=== PATIENT | female | born 1945 | race Caucasian/White ===

== ENCOUNTER 2017-12-13 12:56 | Emergency (ER) | payer MEDICARE ==
[~2017-12-13] VITALS: Ht 157.5 cm; Wt 45.4 kg
--- NOTE | 2017-12-13 14:37 | NUR ---
Patient discharged to home in stable conditon. Written and verbal after care instructions given. Patient verbalizes understanding of instructions.
== END 2017-12-13 15:05 | disposition home or self-care (01) ==
LOC: ER 12:56
DX: J02.9 Acute pharyngitis, unspecified (principal)
CPT/HCPCS: A4663

== ENCOUNTER 2019-02-10 09:26 | Emergency (ER) | payer MEDICARE ==
[~2019-02-10] VITALS: Ht 157.5 cm; Wt 47.6 kg
--- NOTE | 2019-02-10 09:48 | NUR ---
at bedside to examine patient.
--- NOTE | 2019-02-10 09:54 | NUR ---
Patient discharged to home in stable conditon. Written and verbal after care instructions given. Patient verbalizes understanding of instructions.PT WALKS IN STEADY GAIT.
== END 2019-02-10 10:00 | disposition home or self-care (01) ==
LOC: ER 09:26
DX: R19.7 Diarrhea, unspecified (principal)
CPT/HCPCS: A4663

== ENCOUNTER 2022-02-18 10:36 | Emergency (ER) | payer MEDICARE ==
[~2022-02-18] VITALS: Ht 157.5 cm; Wt 44.5 kg
[2022-02-18] MEDS ORDERED: LIDOCAINE 1%-EPI 1:100,000 20 ML VIAL IJ ONE (11:30)
[2022-02-18] MEDS ORDERED: diphenhydrAMINE 25 MG CAP PO ONE ×2 (11:30→11:53)
[2022-02-18] MEDS ORDERED: CEFTRIAXONE 1 G VIAL IM ONE (11:30)
[2022-02-18] MEDS ORDERED: CEPH500C2 PO (11:32)
[2022-02-18] MEDS ORDERED: CEFTRIAXONE 1 G VIAL ONE (11:37)
[2022-02-18] MEDS ORDERED: LIDOCAINE HCL 1% 20 ML VIAL ONE (11:38)
--- NOTE | 2022-02-18 12:01 | NUR ---
Rocephine 1 gram with Lidocaine 1% injected to left buttock. Benadryl 25 mg PO given.
--- NOTE | 2022-02-18 12:40 | NUR ---
Patient is stable. Denies any reaction. Patient's discharge instructions given. No further inquiries. Denies any nausea, vomiting, and diarrhea. Denies any pruritus. Discussed home care.
--- NOTE | 2022-02-18 12:56 | NUR ---
pt given discharge paperwork, requested a list of medicatons administered to her here in ED. I provided the patient with that information. She also requested that i add a note to her chart regarding medicare fraud, i explained to the patient that i could not enter that information and asked her to get in touch with Medicare regarding her questions and concerns. She requested copies of her medical record, i refered her to our medical records department, she verbalized understanding. i provided her with our hospital's main number.
--- NOTE | 2022-02-18 13:00 | NUR ---
Patient discharged to home in stable condition. Written and verbal after care instructions given. Patient verbalizes understanding of instructions. Stressed follow up or return to ER for worsening s/s.
== END 2022-02-18 13:09 | disposition home or self-care (01) ==
LOC: ER 10:47
DX: S00.462A Insect bite (nonvenomous) of left ear, initial encounter (principal); H60.12 Cellulitis of left external ear; W57.XXXA Bitten or stung by nonvenomous insect and other nonvenomous arthropods, initial encounter; Y92.89 Other specified places as the place of occurrence of the external cause; Z88.1 Allergy status to other antibiotic agents; Z88.0 Allergy status to penicillin
CPT/HCPCS: 99283; 96372; Q0163; J0696; J3490; A4663

== ENCOUNTER 2023-05-03 17:04 | Inpatient (IN) | payer MEDICARE ==
[~2023-05-03] VITALS: Ht 157.5 cm; Wt 41.7 kg
[~2023-05-03 17:04] MED LIST: CEPH500C2 PO
[2023-05-03] MEDS ORDERED: PANT40TA49 PO (18:02)
[2023-05-03] MEDS ORDERED: ACET-3117 PO (18:02)
[2023-05-03] MEDS ORDERED: OLAN2.5T3 PO (18:02)
[2023-05-03 18:13] LABS: BASOPHILS % (AUTO) 0.7 % (0.0-2.0); EOSINOPHILS # (AUTO) 0.1 K/uL (0.0-0.7); EOSINOPHILS % (AUTO) 1.6 % (0.0-7.0); HEMATOCRIT 31.4 % (31.2-41.9); HEMOGLOBIN 10.5 g/dL (10.9-14.3); LYMPHOCYTES # (AUTO) 1.3 K/uL (0.8-4.8); LYMPHOCYTES % (AUTO) 20.1 % (20.5-51.5); MEAN CORPUSCULAR HEMOGLOBIN 29.3 uug (24.7-32.8); MEAN CORPUSCULAR HGB CONC 34 g/dL (32.3-35.6); MEAN CORPUSCULAR VOLUME 87.5 fL (75.5-95.3); MONOCYTES # (AUTO) 0.4 K/uL (0.1-1.30); MONOCYTES % (AUTO) 5.9 % (0.0-11.0); NEUTROPHILS # (AUTO) 4.7 K/uL (1.8-8.9); NEUTROPHILS % (AUTO) 71.7 % (38.5-71.5); PLATELET COUNT (AUTO) 467 K/uL (179-408); RED BLOOD CELL COUNT(AUTO) 3.59 MIL/uL (3.63-4.92); RED CELL DISTRIBUTION WIDTH 14.2 % (12.3-17.7); WHITE BLOOD COUNT (AUTO) 6.5 K/uL (3.8-11.8)
[2023-05-03 18:49] LABS: ALANINE AMINOTRANSFERASE 26 U/L (14-59); ALBUMIN 3.2 g/dL (3.4-5.0); ALKALINE PHOSPHATASE 69 U/L (50-136); ASPARTATE AMINOTRANSFERASE 22 U/L (15-37); BILIRUBIN,DIRECT 0.2 mg/dL (0.0-0.2); BILIRUBIN,TOTAL 0.3 mg/dL (0.2-1.0); CALCIUM 9.3 mg/dL (8.5-10.1); CARBON DIOXIDE 24 mmol/L (21-32); CHLORIDE 101 mmol/L (98-107); CREATININE 0.9 mg/dL (0.6-1.3); GLUCOSE 122 mg/dL (74-106); POTASSIUM 4.1 mmol/L (3.5-5.1); SODIUM SERUM 137 mmol/L (136-145); TOTAL PROTEIN, SERUM 7.3 g/dL (6.4-8.2); UREA NITROGEN, BLOOD 11 mg/dL (7-18)
[2023-05-03 18:51] LABS: ETHANOL < 3 MG/DL (0-10)
[2023-05-03 18:56] LABS: THYROID STIMULATING HORMONE 2.541 mIU/mL (0.358-3.740)
[2023-05-03 19:27] LABS: ACETAMINOPHEN < 2.0 ug/mL (10-30)
[2023-05-03 21:45] VITALS: BP 121/73; TEMP 98; O2SAT 100
[2023-05-03] MEDS ORDERED: ACETAMINOPHEN 325 MG TABLET PO PRN (22:00)
[2023-05-03] MEDS ORDERED: TEMAZEPAM 7.5 MG CAPSULE PO PRN (22:00)
[2023-05-03] MEDS ORDERED: MAG HYDROX/AL HYDROX/SIMETH 30 ML LIQUID UDC PO PRN (22:00)
[2023-05-03] MEDS ORDERED: CLONAZEPAM 0.5 MG TABLET PO PRN (22:00)
[2023-05-03] MEDS ORDERED: BLOOD SUGAR DIAGNOSTIC 1 EACH STRIP VI ONE (22:00)
[2023-05-03] MEDS ORDERED: MAGNESIUM HYDROXIDE 30 ML LIQUID UDC PO PRN (22:00)
[2023-05-03] MEDS ORDERED: Medication Not On Formulary EA (Acetaminophen 650 MG) PO PRN (23:15)
[2023-05-04] MEDS: PANTOPRAZOLE SODIUM 40 MG TABLET.DR PO SCH (06:38)
[2023-05-04 08:07] VITALS: BP 125/62; TEMP 98.2; O2SAT 99
[2023-05-04] MEDS ORDERED: PANTOPRAZOLE SODIUM 40 MG TABLET.DR PO SCH (09:00)
[2023-05-04 09:14] LABS: *AMPHETAMINE, URINE NEGATIVE (NEGATIVE); *BARBITURATE, URINE NEGATIVE (NEGATIVE); *BENZODIAZEPINE, URINE NEGATIVE (NEGATIVE); *CANNABINOID, URINE NEGATIVE (NEGATIVE); *COCCAINE, URINE NEGATIVE (NEGATIVE); *OPIATE, URINE NEGATIVE (NEGATIVE); *PHENCYCLIDINE SCREEN,URINE NEGATIVE (NEGATIVE); FENTANYL, URINE NEGATIVE (NEGATIVE)
[2023-05-04 09:33] LABS: *CLARITY,URINE CLEAR (CLEAR); *COLOR,URINE LIGHT YELLOW (YELLOW); *PROTEIN,URINE 1+ (NEGATIVE); UGLUCOSE NEGATIVE (NEGATIVE)
[2023-05-04 09:34] LABS: *BILIRUBIN,URIN NEGATIVE (NEGATIVE); *BLOOD, URINE 3+ (NEGATIVE); *KETONES,URINE NEGATIVE (NEGATIVE); *UROBILINOGEN,URINE 0.2 E.U./dl (NORMAL); LEUKOCYTE ESTERASE ,URINE TRACE (NEGATIVE); NITRITE, URINE NEGATIVE (NEGATIVE)
[2023-05-04 11:00] LABS: BACTERIA,URINE MANY /HPF (NONE SEEN); CALCIUM OXALATE CRYSTALS,UR MODERATE /HPF (NONE SEEN); SQUAMOUS EPITHELIAL CELL,UR FEW /HPF (NONE SEEN)
[2023-05-04 15:20] VITALS: BP 120/65; TEMP 97.8; O2SAT 98
[2023-05-04] MEDS ORDERED: risperiDONE 0.5 MG TABLET PO SCH (17:00)
[2023-05-04 20:00] VITALS: BP 111/54; TEMP 97.4; O2SAT 100
[2023-05-04] MEDS: risperiDONE 0.5 MG TABLET PO SCH (20:50)
[2023-05-05] MEDS: PANTOPRAZOLE SODIUM 40 MG TABLET.DR PO SCH (06:42)
[2023-05-05 08:02] VITALS: BP 106/68; TEMP 98.5; O2SAT 98
[2023-05-05] MEDS: risperiDONE 0.5 MG TABLET PO SCH ×2 (08:42→21:00)
[2023-05-05 16:03] VITALS: BP 94/56; TEMP 98.1; O2SAT 98
[2023-05-05 20:15] VITALS: BP 99/61; TEMP 98.2; O2SAT 98
[2023-05-06] MEDS: PANTOPRAZOLE SODIUM 40 MG TABLET.DR PO SCH (06:16)
[2023-05-06 07:47] VITALS: BP 122/73; TEMP 98; O2SAT 100
[2023-05-06] MEDS: risperiDONE 0.5 MG TABLET PO SCH ×2 (08:28→21:00)
[2023-05-06 15:19] VITALS: BP 106/55; TEMP 98; O2SAT 98
[2023-05-06 19:52] VITALS: BP 124/66; TEMP 98.1; O2SAT 99
[2023-05-07] MEDS: PANTOPRAZOLE SODIUM 40 MG TABLET.DR PO SCH (07:03)
[2023-05-07 08:00] VITALS: BP 106/59; TEMP 97.6; O2SAT 97
[2023-05-07] MEDS: risperiDONE 0.5 MG TABLET PO SCH ×2 (08:36→20:26)
[2023-05-07 16:00] VITALS: BP 113/71; TEMP 98.6; O2SAT 98
[2023-05-07 19:44] VITALS: BP 117/54; TEMP 98.1; O2SAT 98
[2023-05-08] MEDS: PANTOPRAZOLE SODIUM 40 MG TABLET.DR PO SCH (06:21)
[2023-05-08 08:15] VITALS: BP 117/62; TEMP 97.8; O2SAT 100
[2023-05-08] MEDS: risperiDONE 0.5 MG TABLET PO SCH ×2 (08:30→20:11)
[2023-05-08 15:39] VITALS: BP 107/60; TEMP 98; O2SAT 99
[2023-05-08 19:57] VITALS: BP 121/61; TEMP 98; O2SAT 99
[2023-05-09] MEDS: PANTOPRAZOLE SODIUM 40 MG TABLET.DR PO SCH (06:19)
[2023-05-09 07:46] VITALS: TEMP 97.8
[2023-05-09] MEDS: risperiDONE 0.5 MG TABLET PO SCH ×2 (08:25→21:00)
[2023-05-09 16:00] VITALS: BP 115/61; TEMP 97.6
[2023-05-09 20:00] VITALS: BP 101/55; TEMP 97.3; O2SAT 100
[2023-05-10] MEDS: PANTOPRAZOLE SODIUM 40 MG TABLET.DR PO SCH (06:04)
[2023-05-10] MEDS: risperiDONE 0.5 MG TABLET PO SCH ×2 (08:56→21:00)
[2023-05-10 16:30] VITALS: BP 126/83; TEMP 97.2; O2SAT 99
[2023-05-10 20:16] VITALS: BP 99/50; TEMP 98.1; O2SAT 99
[2023-05-11] MEDS: PANTOPRAZOLE SODIUM 40 MG TABLET.DR PO SCH (06:13)
[2023-05-11] MEDS: risperiDONE 0.5 MG TABLET PO SCH ×2 (08:38→21:00)
[2023-05-11 16:00] VITALS: BP 115/64; TEMP 97.7; O2SAT 99
[2023-05-11 20:00] VITALS: BP 102/47; TEMP 97.7; O2SAT 99
[2023-05-12] MEDS: PANTOPRAZOLE SODIUM 40 MG TABLET.DR PO SCH (06:24)
[2023-05-12 07:30] VITALS: BP 120/65; TEMP 97.2; O2SAT 99
[2023-05-12] MEDS: risperiDONE 0.5 MG TABLET PO SCH ×2 (08:02→20:12)
[2023-05-12 15:30] VITALS: BP 128/59; TEMP 98; O2SAT 97
[2023-05-12 20:00] VITALS: BP 109/48; TEMP 98.1; O2SAT 95
[2023-05-13] MEDS: PANTOPRAZOLE SODIUM 40 MG TABLET.DR PO SCH (06:05)
[2023-05-13 08:04] VITALS: BP 125/72; TEMP 98; O2SAT 98
[2023-05-13] MEDS: risperiDONE 0.5 MG TABLET PO SCH ×2 (09:00→21:00)
[2023-05-13 16:12] VITALS: BP 106/62; TEMP 98.1; O2SAT 99
[2023-05-13 20:00] VITALS: BP 109/55; TEMP 97.8; O2SAT 98
[2023-05-14] MEDS: PANTOPRAZOLE SODIUM 40 MG TABLET.DR PO SCH (06:33)
[2023-05-14 07:40] VITALS: BP 123/63; TEMP 98.1; O2SAT 98
[2023-05-14] MEDS: risperiDONE 0.5 MG TABLET PO SCH ×2 (08:04→21:00)
[2023-05-14 16:00] VITALS: BP 103/54; TEMP 98; O2SAT 98
[2023-05-14 20:00] VITALS: BP 96/54; TEMP 97.9; O2SAT 97
[2023-05-15] MEDS: PANTOPRAZOLE SODIUM 40 MG TABLET.DR PO SCH ×2 (05:13→05:59)
[2023-05-15 07:30] VITALS: BP 135/71; TEMP 98.2; O2SAT 100
[2023-05-15] MEDS: risperiDONE 0.5 MG TABLET PO SCH ×2 (09:00→21:00)
[2023-05-15 16:00] VITALS: BP 93/55; TEMP 97.9; O2SAT 98
[2023-05-15 20:00] VITALS: BP 88/47; TEMP 97.6; O2SAT 95
[2023-05-16] MEDS: PANTOPRAZOLE SODIUM 40 MG TABLET.DR PO SCH (06:15)
[2023-05-16 08:00] VITALS: BP 107/70; TEMP 97.3; O2SAT 100
[2023-05-16] MEDS: risperiDONE 0.5 MG TABLET PO SCH ×3 (08:19→21:00)
[2023-05-16 20:58] VITALS: BP 100/58; TEMP 98.1; O2SAT 97
[2023-05-17] MEDS: PANTOPRAZOLE SODIUM 40 MG TABLET.DR PO SCH (06:06)
[2023-05-17 07:30] VITALS: BP 134/69; TEMP 98; O2SAT 99
[2023-05-17 16:00] VITALS: BP 130/71; TEMP 98.2; O2SAT 100
[2023-05-17] MEDS ORDERED: HALOPERIDOL LACTATE 5 MG/1 ML VIAL IM PRN (17:00)
[2023-05-17] MEDS ORDERED: risperiDONE-M 0.5 MG TAB.RAPDIS PO ONE (17:15)
[2023-05-17 19:00] VITALS: BP 110/47; TEMP 98; O2SAT 99
[2023-05-17] MEDS: risperiDONE 0.5 MG TABLET PO SCH (20:44)
[2023-05-18] MEDS: PANTOPRAZOLE SODIUM 40 MG TABLET.DR PO SCH (06:16)
[2023-05-18 07:42] VITALS: BP 102/63; TEMP 97.8; O2SAT 98
[2023-05-18] MEDS: risperiDONE 0.5 MG TABLET PO SCH ×2 (08:35→20:23)
[2023-05-18 16:08] VITALS: BP 134/55; TEMP 97.9; O2SAT 99
[2023-05-18 19:53] VITALS: BP 101/52; TEMP 98; O2SAT 99
[2023-05-19] MEDS: PANTOPRAZOLE SODIUM 40 MG TABLET.DR PO SCH (06:40)
[2023-05-19 07:52] VITALS: BP 117/63; TEMP 98.2; O2SAT 99
[2023-05-19] MEDS: risperiDONE 0.5 MG TABLET PO SCH ×2 (08:21→20:44)
[2023-05-19 16:19] VITALS: BP 105/51; TEMP 98.1; O2SAT 98
[2023-05-19 20:00] VITALS: BP 104/57; TEMP 97.7; O2SAT 97
[2023-05-20] MEDS: PANTOPRAZOLE SODIUM 40 MG TABLET.DR PO SCH (05:43)
[2023-05-20 08:11] VITALS: BP 108/61; TEMP 98.1; O2SAT 100
[2023-05-20] MEDS: risperiDONE 0.5 MG TABLET PO SCH ×2 (08:20→20:32)
[2023-05-20 16:21] VITALS: BP 131/66; TEMP 98; O2SAT 100
[2023-05-20 19:31] VITALS: BP 118/57; TEMP 98.1; O2SAT 100
[2023-05-21] MEDS: PANTOPRAZOLE SODIUM 40 MG TABLET.DR PO SCH (06:23)
[2023-05-21 08:00] VITALS: BP 111/62; TEMP 97.5; O2SAT 98
[2023-05-21] MEDS: risperiDONE 0.5 MG TABLET PO SCH ×2 (10:50→20:36)
[2023-05-21 16:00] VITALS: BP 103/56; TEMP 97.6; O2SAT 100
[2023-05-21 20:00] VITALS: BP 105/49; TEMP 97.7; O2SAT 97
[2023-05-22] MEDS: PANTOPRAZOLE SODIUM 40 MG TABLET.DR PO SCH (06:34)
[2023-05-22 08:11] VITALS: BP 112/56; TEMP 98.4; O2SAT 98
[2023-05-22] MEDS: risperiDONE 0.5 MG TABLET PO SCH ×2 (08:27→20:28)
[2023-05-22 15:36] VITALS: BP 130/69; TEMP 98; O2SAT 99
[2023-05-22 20:00] VITALS: BP 122/59; TEMP 98; O2SAT 96
[2023-05-23] MEDS: PANTOPRAZOLE SODIUM 40 MG TABLET.DR PO SCH (06:38)
[2023-05-23 07:56] VITALS: BP 112/61; TEMP 98.2; O2SAT 98
[2023-05-23] MEDS: risperiDONE 0.5 MG TABLET PO SCH ×2 (08:32→20:52)
[2023-05-23 15:31] VITALS: BP 121/70; TEMP 98.2; O2SAT 100
[2023-05-23 20:03] VITALS: BP 118/64; TEMP 98.1; O2SAT 99
[2023-05-24] MEDS: PANTOPRAZOLE SODIUM 40 MG TABLET.DR PO SCH (06:04)
[2023-05-24 07:55] VITALS: BP 128/74; TEMP 98; O2SAT 96
[2023-05-24] MEDS: risperiDONE 0.5 MG TABLET PO SCH ×2 (08:26→20:28)
[2023-05-24 15:26] VITALS: BP 97/55; TEMP 98; O2SAT 99
[2023-05-24 20:03] VITALS: BP 115/62; TEMP 97.8; O2SAT 100
[2023-05-25] MEDS: PANTOPRAZOLE SODIUM 40 MG TABLET.DR PO SCH (06:53)
[2023-05-25 08:09] VITALS: BP 112/64; TEMP 98; O2SAT 99
[2023-05-25] MEDS: risperiDONE 0.5 MG TABLET PO SCH ×2 (08:32→20:39)
[2023-05-25 15:40] VITALS: BP 116/56; TEMP 97.8; O2SAT 100
[2023-05-25 20:25] VITALS: BP 94/52; TEMP 97.9; O2SAT 97
[2023-05-26] MEDS: PANTOPRAZOLE SODIUM 40 MG TABLET.DR PO SCH (06:06)
[2023-05-26 07:43] VITALS: BP 127/69; TEMP 98.4; O2SAT 100
[2023-05-26] MEDS: risperiDONE 0.5 MG TABLET PO SCH (09:19)
== END 2023-05-26 12:15 | DRG 885 ==
LOC: ER 17:08 → GPS 21:33
PROVIDERS: ADMIT Psychiatry & Neurology Psychiatry; ATTEND Internal Medicine
DX: F29 Unspecified psychosis not due to a substance or known physiological condition (principal); E44.1 Mild protein-calorie malnutrition; F03.93 Unspecified dementia, unspecified severity, with mood disturbance; F03.94 Unspecified dementia, unspecified severity, with anxiety; E88.09 Other disorders of plasma-protein metabolism, not elsewhere classified; Z85.528 Personal history of other malignant neoplasm of kidney; Z90.710 Acquired absence of both cervix and uterus; M62.81 Muscle weakness (generalized); F20.9 Schizophrenia, unspecified; E78.1 Pure hyperglyceridemia; R27.8 Other lack of coordination; Z91.81 History of falling; D64.9 Anemia, unspecified
CPT/HCPCS: 36415; 84443; 85025; G0480